=== PATIENT | male | born 1985 | race Caucasian/White ===

== ENCOUNTER 2019-02-02 10:53 | Emergency (ER) | payer MEDICAID ==
[~2019-02-02] VITALS: Ht 406.4 cm; Wt 77.1 kg
[2019-02-02 11:11] VITALS: BP 140/86; Ht 406.4 cm; Wt 77.1 kg
[2019-02-02 11:59] LABS: CALCIUM 9.7 mg/dL (8.5-10.1); CARBON DIOXIDE 24.4 mmol/L (21-32); CHLORIDE SERUM 103 mmol/L (98-107); GFR1 > 60 mL/min; GLUCOSE SERUM 105 mg/dL (74-106); POTASSIUM SERUM 3.5 mmol/L (3.5-5.1); SODIUM SERUM 141 mmol/L (136-145)
[2019-02-02 12:02] LABS: BASOPHIL % 0.5 % (0-2); PLATELET COUNT 266 x10^3mcL (130-400); RED CELL DISTRIBUTION WIDTH 13.8 % (11.5-14.5)
[2019-02-02 12:04] LABS: ALBUMIN 4.3 g/dL (3.4-5.0); ALKALINE PHOSPHATASE 58 U/L (46-116); ALT/SGPT 24 U/L (16-63); AST/SGOT 8 U/L (15-37); LIPASE 68 IU/L (73-393); TOTAL PROTEIN, SERUM 7.6 g/dL (6.4-8.2)
== END 2019-02-02 12:35 | disposition home or self-care (01) ==
LOC: ED 10:53
PROVIDERS: Emergency Medicine
DX: G89.29 Other chronic pain (principal); R10.13 Epigastric pain
CPT/HCPCS: 36415